=== PATIENT | female | born 1985 | race Two or more races ===

== ENCOUNTER 2022-10-14 02:56 | Emergency (ER) | payer MEDICAID, OTHER ==
[~2022-10-14] VITALS: Ht 170.2 cm; Wt 81.0 kg
[2022-10-14] MEDS ORDERED: KETOROLAC TROMETHAMINE 30 MG/ML VIAL IVP ONE (03:45)
[2022-10-14 04:30] VITALS: BP 127/68; PULSE 75; RESP 18; TEMP 98.3
== END 2022-10-14 04:30 | disposition short-term general hospital (02) ==
LOC: EMS 02:57
DX: O00.90 Unspecified ectopic pregnancy without intrauterine pregnancy (principal)
CPT/HCPCS: 99285; 96374; J1885